=== PATIENT | male | born 2000 | race Caucasian/White ===

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

== ENCOUNTER → 2022-01-08 | Outpatient (REF) | payer BC ==
[2022-01-08 17:30] LABS: IMMUNOGLOBULIN A 87.1 MG/DL (70-400); PERCENT SATURATION 17.1 % (19.7-50.0)
== END ==
LOC: M LAB REF 16:04
PROVIDERS: ATTEND Internal Medicine
DX: R74.01 Elevation of levels of liver transaminase levels (principal)

== ENCOUNTER → 2022-11-26 | Outpatient (REF) | payer BC | LOC: M LAB REF 17:19 | PROVIDERS: ATTEND Internal Medicine | DX: Z11.59 Encounter for screening for other viral diseases (principal) ==

== ENCOUNTER → 2023-11-29 | Outpatient (REF) | payer BC ==
[2023-11-29 13:22] LABS: PERCENT SATURATION 27.4 % (19.7-50.0)
[2023-11-29 13:24] LABS: FERRITIN 145.5 NG/ML (10.5-307.3)
== END ==
LOC: M LAB REF 12:31
PROVIDERS: ATTEND Internal Medicine
DX: R53.83 Other fatigue (principal)